=== PATIENT | female | born 1985 | race Caucasian/White ===

== ENCOUNTER 2016-08-25 19:37 | Emergency (ER) | payer OTHER ==
[2016-08-25] MEDS ORDERED: Rocephin 1000 MG INJ IM ONE (21:33)
[2016-08-25] MEDS ORDERED: ATARAX 25 MG PO ONE (21:33)
[2016-08-25] MEDS ORDERED: ATARAX 25 MG ONE (21:37)
[2016-08-25] MEDS ORDERED: Rocephin 1000 MG INJ ONE (21:37)
[2016-08-25] MEDS ORDERED: XYLOCAINE 1% HCL 20 ML MDV ONE (21:37)
--- NOTE | 2016-08-25 21:39 | ERPHSYRPT ---
- History of Present Illness Time Seen by Provider: 08/25/16 20:25 Source: patient Exam Limitations: no limitations Patient Subjective Stated Complaint: pt states she has had cough and fever for approx 6 days. states Triage Nursing Assessment: pt alert and oriented. answers questions approp. skin pink warm and dry. ambulatory with steady gait noted. resps nonlabored with exp wheeze noted to lt side. Physician History: FOR THE PAST 6 DAYS PT HAS HAD COUGH, STUFFY NOSE, SORE THROAT AND EARACHES. PT WENT TO [facility] ER YESTERDAY AND 8 HOURS AFTER ALBUTEROL ERUPTED IN HIVES ON TRUNK AND EXTREMITIES. Allergies/Adverse Reactions: albuterol Allergy (Verified 08/25/16 20:38) Penicillins Allergy (Verified 08/25/16 20:38) Home Medications: Levetiracetam [Keppra 500 mg ] 500 mg PO DAILY 08/25/16 [History] Hx Tetanus, Diphtheria Vaccination/Date Given: Yes Hx Influenza Vaccination/Date Given: No Hx Pneumococcal Vaccination/Date Given: No Immunizations Up to Date: Yes - Review of Systems Ears, Nose, & Throat: Ear Pain, Nose Congestion, Throat Pain Respiratory: Cough Skin: Rash All Other Systems: Reviewed and Negative - Past Medical History Pertinent Past Medical History: Yes Neurological History: Seizures ENT History: No Pertinent History Cardiac History: No Pertinent History Respiratory History: No Pertinent History Endocrine Medical History: No Pertinent History Musculoskeletal History: No Pertinent History GI Medical History: No Pertinent History History: No Pertinent History Psycho-Social History: No Pertinent History Female Reproductive Disorders: No Pertinent History - Past Surgical History Past Surgical History: Yes Female Surgical History: Tubal Ligation, Other Other Surgical History: ovarian cyst removal - Social History Smoking Status: Current every day smoker How long have you smoked: 10 yrs Exposure to second hand smoke: Yes Drug Use: none Patient Lives Alone: No - Nursing Vital Signs Nursing Vital Signs: Initial Vital Signs Temperature 97.3 F Temperature Source Oral Pulse Rate 91 Respiratory Rate 18 Blood Pressure [Left Arm] 117/83 Pain Intensity 8 - Physical Exam General Appearance: alert Eye Exam: PERRL/EOMI Ears, Nose, Throat Exam: moist mucous membranes, pharyngeal erythema Neck Exam: normal inspection Respiratory Exam: other (BRONCHIAL B.S. OVER ALL EVANS) Cardiovascular Exam: normal heart sounds Gastrointestinal/Abdomen Exam: soft, normal bowel sounds Back Exam: normal range of motion Extremity Exam: No pedal edema Neurologic Exam: alert, cooperative Skin Exam: rash (HIVES SCATTERED OVER TRUNK AND EXTREMITIES) SpO2 Interpretation: normal SpO2: 96 Oxygen Delivery: Room Air - Course Nursing assessment & vital signs reviewed: Yes Ordered Tests: Medication Summary Discontinued Medications Generic Name Dose Route Start Last Admin Trade Name Freq PRN Reason Stop Dose Admin Ceftriaxone Sodium 1,000 mg 08/25/16 21:33 Rocephin 1000 Mg Inj IM 08/25/16 21:34 STAT ONE Hydroxyzine HCl 50 mg 08/25/16 21:33 Atarax 25 Mg PO 08/25/16 21:34 STAT ONE - Departure Time of Disposition: 21:42 Departure Disposition: Home Clinical Impression: PHARYNGITIS, BRONCHITIS, HIVES SECONDARY TO ALBUTEROL Condition: Fair Critical Care Time: No Instructions: Hives, Bronchitis Additional Instructions: FOLLOW UP WITH PRIVATE DOCTOR TOMORROW. DO NOT TAKE ALBUTEROL EVER. Prescriptions: Guaifenesin/Codeine Phosphate [Robitussin AC Syrup] 10 ml PO Q4H PRN PRN #120 ml PRN Reason: Cough Hydroxyzine HCl 25 mg [Atarax 25 mg] 50 mg PO Q4H PRN PRN #30 tablet PRN Reason: Itching Cefdinir [Omnicef 300 mg] 300 mg PO BID #20 capsule
[2016-08-25 22:06] VITALS: BP 129/70; PULSE 73; O2SAT 100
== END 2016-08-25 22:06 | disposition home or self-care (01) ==
LOC: ED 19:37
DX: J02.9 Acute pharyngitis, unspecified (principal); J40 Bronchitis, not specified as acute or chronic; L50.0 Allergic urticaria
CPT/HCPCS: 96372; 99284; J0696